=== PATIENT | female | born 1975 ===

== ENCOUNTER 2017-08-16 11:03 | Emergency (ER) | payer MEDICAID ==
[2017-08-16 11:09] VITALS: BP 145/76; PULSE 102; TEMP 97; O2SAT 99; BMI 45.3
[2017-08-16] MEDS ORDERED: Sodium Chloride 0.9% 1,000 ML IV STA (11:52)
[2017-08-16 13:09] LABS: BASO # 0.1 K/uL (0.0-0.2); BASO % 0.9 % (0.0-2.0); EOS # 0.1 K/uL (0.0-0.7); HEMOGLOBIN 12.3 g/dL (12.0-16.0); LYMPH # 1.8 K/uL (1.0-4.3); LYMPH % 19.3 % (20.0-40.0); MEAN CELL VOLUME 84.4 fl (81.0-99.0); MEAN CORPUSCULAR HEMOGLOBIN 27.5 pg (27.0-31.0); MEAN CORPUSCULAR HGB CONC 32.6 g/dL (33.0-37.0); MEAN PLATELET VOLUME 9.9 fl (7.2-11.7); MONO # 0.5 K/uL (0.0-0.8); MONO % 5.6 % (0.0-10.0); NEUT # 6.8 K/uL (1.8-7.0); NEUT % 73.2 % (50.0-75.0); RBC 4.48 Mil/uL (3.80-5.20); RED CELL DISTRIBUTION WIDTH 16.1 % (11.5-14.5); WHITE BLOOD COUNT 9.3 K/uL (4.8-10.8)
[2017-08-16 13:17] LABS: ALB/GLOB RATIO 1.3 (1.0-2.1); ALBUMIN 4.2 g/dL (3.5-5.0); ALT/SGPT 62 U/L (9-52); AST/SGOT 39 U/L (14-36); BLOOD UREA NITROGEN 8 mg/dl (7-17); CALCIUM 8.6 mg/dL (8.4-10.2); GFR AFRICAN-AMERICAN > 60; GFR NON-AFRICAN AMERICAN > 60
[2017-08-16] MEDS ORDERED: Morphine 4 MG/ML VIAL ONE ×2 (13:31→17:08)
--- NOTE | 2017-08-16 16:22 | ED PDOC ---
HPI: Skin/Bite Injury Time Seen by Provider: 08/16/17 11:25 Chief Complaint (Nursing): Abnormal Skin Integrity Chief Complaint (Provider): Swelling and pain, right lower abdomen History Per: Patient History/Exam Limitations: no limitations Onset/Duration Of Symptoms: Days Current Symptoms Are (Timing): Still Present Quality Of Symptoms: Painful Severity: Moderate Pain Scale Rating Of: 6 Additional Complaint(s): Pt reports right lower abdominal pain. PT states she has similar on the left side in the past and it was drained by Dr. Zhu. Past Medical History Reviewed: Historical Data, Nursing Documentation, Vital Signs Vital Signs: Last Vital Signs Temp 97 F L 08/16/17 11:08 Pulse 102 H 08/16/17 11:08 Resp BP 145/76 08/16/17 11:08 Pulse Ox 99 08/16/17 11:08 - Medical History PMH: Arthritis, Back Problems, Bronchitis (6 months ago), Colonic Polyps, Diabetes, Gastritis, Gall Bladder Disease (HX [employer] 2004), HTN, Hypercholesterolemia, Sleep Apnea Denies: HIV, Chronic Kidney Disease - Surgical History Surgical History: Back Surgery, Cholecystectomy, Endoscopy - Family History Family History: States: Unknown Family Hx, Stroke, CAD - Living Arrangements Living Arrangements: With Family - Social History Current smoker - smoking cessation education provided: No - Immunization History Hx Tetanus Toxoid Vaccination: No Hx Influenza Vaccination: No Hx Pneumococcal Vaccination: No - Home Medications Home Medications: Ambulatory Orders Medication Instructions Recorded Insulin Glargine,Hum.rec.anlog 35 unit SC HS 08/31/14 [Lantus] Atorvastatin Calcium [Lipitor] 20 mg PO HS 02/25/15 Nateglinide [Starlix] 120 mg PO AC 02/25/15 Pioglitazone [Actos] 30 mg PO DAILY 02/25/15 Biotin [Kun Biotin] 10,000 mcg PO BID 09/27/15 Cetirizine HCl [All Day Allergy 10 mg PO DAILY 09/27/15 Relief] MetFORMIN [glucoPHAGE] 1,000 mg PO BID 09/27/15 Omeprazole [Prilosec] 40 mg PO DAILY 09/27/15 Valsartan [Diovan] 160 mg PO DAILY 09/27/15 Acetaminophen/Butalbital/Caf 1 tab PO Q4 PRN #0 tab 09/29/15 [Fioricet] Cyclobenzaprine [Flexeril] 1 tab PO TID 12/19/15 Ondansetron ODT [Zofran ODT] 4 mg PO Q4H PRN #10 odt 12/19/15 Acetaminophen/Oxycodone Hydr 1 tab PO Q6H #15 tab 10/09/16 [Percocet 10/325 mg Tab] Atorvastatin [Lipitor] 20 mg PO DAILY 10/09/16 Baclofen [Lioresal] 10 mg PO DAILY 10/09/16 Ciprofloxacin [Cipro] 1 tab PO BID #14 tab 10/09/16 Gentamicin Sulfate [Garamycin 0.3% 2 drop TOP QID #1 bottle 10/09/16 Opth] Insulin Glargine, Recombina 36 unit SC HS 10/09/16 [Lantus] Nateglinide [Starlix] 120 mg PO TID 10/09/16 Nortriptyline HCl [Pamelor] 25 mg PO DAILY 10/09/16 Omeprazole 40 mg PO DAILY 10/09/16 Pioglitazone [Actos] 30 mg PO DAILY 10/09/16 SITagliptin [Januvia] 100 mg PO DAILY 10/09/16 Valsartan [Diovan] 320 mg PO DAILY 10/09/16 Ibuprofen [Motrin] 1 tab PO TID PRN #30 tab 06/20/17 Lidocaine 5% [Lidoderm] 1 patch TOP DAILY #10 patch 06/20/17 predniSONE [Prednisone] 20 mg PO BID #10 tab 06/20/17 Clindamycin [Cleocin] 300 mg PO QID #40 cap 08/16/17 oxyCODONE/Acetaminophen [Percocet 1 ea PO Q6H PRN #15 tab 08/16/17 5/325 mg Tab] - Allergies Allergies/Adverse Reactions: Allergies Allergy/AdvReac Type Severity Reaction Status Date / Time cephalexin Allergy RASH Verified 06/20/17 13:27 iodine Allergy RASH Verified 06/20/17 13:27 nitrofurantoin Allergy SHORTNESS Verified 06/20/17 13:27 OF BREATH Penicillins Allergy Verified 06/20/17 13:27 Sulfa (Sulfonamide Allergy SHORTNESS Verified 06/20/17 13:27 Antibiotics) OF BREATH Review of Systems ROS Statement: Except As Marked, All Systems Reviewed And Found Negative Constitutional: Negative for: Fever, Chills Skin: Positive for: Other Physical Exam - Reviewed Nursing Documentation Reviewed: Yes Vital Signs Reviewed: Yes - Physical Exam Appears: Positive for: Well, Non-toxic, No Acute Distress Head Exam: Positive for: ATRAUMATIC, NORMAL INSPECTION, NORMOCEPHALIC Skin: Positive for: Warm. Negative for: Normal Color (Indurated area of erythema right lower abdomen/under pannus ) Eye Exam: Positive for: Normal appearance ENT: Positive for: Normal ENT Inspection Neck: Positive for: Normal, Painless ROM Cardiovascular/Chest: Positive for: Regular Rate, Rhythm Respiratory: Positive for: Normal Breath Sounds. Negative for: Accessory Muscle Use, Respiratory Distress Gastrointestinal/Abdominal: Positive for: Bowel Sounds, Soft. Negative for: Tenderness Back: Positive for: Normal Inspection Extremity: Positive for: Normal ROM Neurologic/Psych: Positive for: Alert, Oriented - Laboratory Results Result Diagrams: 08/16/17 12:48 08/16/17 12:48 - ECG O2 Sat by Pulse Oximetry: 99 Medical Decision Making Medical Decision Making: Dr. Zhu aware. Would like antibiotics and f/u with him. Disposition - Clinical Impression Clinical Impression: Carbuncle - Patient ED Disposition Is Patient to be Admitted: No Counseled Patient/Family Regarding: Diagnosis, Need For Followup, Rx Given - Disposition Referrals: Donnie Zhu MD [Staff Provider] - Disposition: Routine/Home Disposition Time: 16:03 Condition: GOOD Prescriptions: Clindamycin [Cleocin] 300 mg PO QID #40 cap oxyCODONE/Acetaminophen [Percocet 5/325 mg Tab] 1 ea PO Q6H PRN #15 tab PRN Reason: Pain, Severe (8-10) Instructions: Furunculosis and Carbunculosis (ED) Print Language: [id number]
== END 2017-08-16 17:40 | disposition home or self-care (01) ==
LOC: H.ER 11:03
DX: L02.93 Carbuncle, unspecified (principal); E11.9 Type 2 diabetes mellitus without complications; E78.00 Pure hypercholesterolemia, unspecified; I10 Essential (primary) hypertension; Z79.4 Long term (current) use of insulin; Z88.0 Allergy status to penicillin
CPT/HCPCS: 80053; 81025; 85025; 87040; 96360; 99283; J1885; J2270; J7040